=== PATIENT | female | born 1935 | race Caucasian/White ===

== ENCOUNTER 2020-10-26 16:06 | Emergency (ER) | payer MEDICARE ==
[~2020-10-26] VITALS: Ht 152.4 cm; Wt 65.8 kg
[2020-10-26] MEDS ORDERED: ONDANSETRON HCL INJ 2MG/ML 2ML 2 MG/ML VIAL IV STA (16:20)
[2020-10-26] MEDS ORDERED: SODIUM CHLORIDE 0.9% 100 ML 100 ML IV STA (16:20)
[2020-10-26] MEDS ORDERED: MORPHINE SULFATE INJ 4 MG/ML INJ 1ML IV STA (16:20)
[2020-10-26] MEDS ORDERED: SODIUM CHLORIDE 0.9% 1000ML 1,000 ML IV STA (16:24)
[2020-10-26] MEDS ORDERED: SODIUM CHLORIDE 0.9% 50ML 50 ML ONE (16:39)
[2020-10-26] MEDS ORDERED: IOPAMIDOL 370 MG/ML 200 ML INFUS..BTL INJ ONE (16:39)
[2020-10-26] MEDS ORDERED: ONDANSETRON HCL INJ 2MG/ML 2ML 2 MG/ML VIAL ONE (16:42)
[2020-10-26] MEDS ORDERED: MORPHINE SULFATE INJ 4 MG/ML INJ 1ML ONE (16:42)
[2020-10-26] MEDS ORDERED: SODIUM CHLORIDE 0.9% 1000ML 1,000 ML ONE (16:42)
[2020-10-26] MEDS ORDERED: ULTRAM 50MG50 MG PO (17:56)
[2020-10-26] MEDS ORDERED: ONDANSETRON ODT4 MG PO (17:56)
[2020-10-26] MEDS ORDERED: CIPRO500 MG PO (17:56)
[2020-10-26 18:06] VITALS: BP 161/94
== END 2020-10-26 18:08 | disposition home or self-care (01) ==
LOC: FSED 16:09
DX: R10.33 Periumbilical pain (principal)
CPT/HCPCS: 74177; 80048; 80076; 81003; 82553; 84484; 85025; 93005; 96374; 96376; 99284; J2270; J2405; J7030; Q9967